=== PATIENT | male | born 1980 | race Caucasian/White ===

== ENCOUNTER 2021-04-23 14:52 | Emergency (ER) | payer MEDICAID ==
[~2021-04-23] VITALS: Ht 175.3 cm; Wt 118.0 kg
[~2021-04-23 14:52] MED LIST: CEPH500T PO; SULF-23 PO
[2021-04-23 14:59] VITALS: BP 132/85
[2021-04-23] MEDS ORDERED: FLUORESCEIN OPHTHALMIC 1 MG STRIP ONE ×2 (16:02)
[2021-04-23] MEDS ORDERED: PROPARACAINE OPHTH 0.5%, 15ML ONE (16:02)
--- NOTE | 2021-04-23 16:14 | NUR ---
KATHY CASTRO TO BEDSIDE TO EXAM EYES.
--- NOTE | 2021-04-23 16:29 | NUR ---
Patient given discharge instructions and they have confirmed that they understand the instructions. Patient ambulatory with steady gait. NAD, all questions answered appropriately, denies additional needs at this time. No personal belongings left in room after discharge.
== END 2021-04-23 16:31 | disposition home or self-care (01) ==
LOC: ED 16:25
DX: H10.023 Other mucopurulent conjunctivitis, bilateral (principal)
CPT/HCPCS: 99283

== ENCOUNTER 2021-05-30 10:22 | Emergency (ER) | payer MEDICAID ==
[~2021-05-30] VITALS: Ht 175.3 cm; Wt 117.0 kg
--- NOTE | 2021-05-30 10:59 | NUR ---
EKG DONE IN TRIAGE
[2021-05-30 11:35] LABS: BASOPHILS % (AUTO) 0 % (0-1); EOSINOPHILS % (AUTO) 4 % (1-7); LYMPHOCYTES % (AUTO) 28 % (22-44); MEAN CORPUSCULAR HEMOGLOBIN 29.4 pg (27.5-34.5); MEAN CORPUSCULAR HGB CONC 33.4 g/dL (33.2-36.2); MEAN PLATELET VOLUME 8.4 fL (7.4-10.4); MONOCYTES % (AUTO) 8 % (2-9); NEUTROPHILS % (AUTO) 59 % (42-75); PLATELET COUNT 276 x10^3/uL (130-400); RED BLOOD COUNT 5.06 x10^6/uL (4.38-5.82); RED CELL DISTRIBUTION WIDTH 15.3 % (9.4-14.8)
[2021-05-30 11:47] LABS: ALANINE AMINOTRANSFERASE 22 U/L (12-78); ALBUMIN 3.2 g/dL (3.4-5.0); ANION GAP 3 mmol/L (5-15); CALCIUM 8.6 mg/dL (8.5-10.1); CHLORIDE 110 mmol/L (98-107); CREATININE 0.85 mg/dL (0.7-1.3)
[2021-05-30 11:51] LABS: ALKALINE PHOSPHATASE 89 U/L (45-117); BILIRUBIN,TOTAL 0.5 mg/dL (0.2-1.0); TOTAL PROTEIN 7.3 g/dL (6.4-8.2); TROPONIN I < 0.015 ng/mL (0.000-0.045)
[2021-05-30 20:15] VITALS: BP 135/86
== END 2021-05-30 20:20 | disposition home or self-care (01) ==
LOC: ED 10:40
DX: L02.11 Cutaneous abscess of neck (principal); L02.811 Cutaneous abscess of head [any part, except face]; R07.89 Other chest pain
CPT/HCPCS: 36415; 71045; 80053; 84484; 85025; 93005; 99285